=== PATIENT | female | born 1945 | race Caucasian/White ===

== ENCOUNTER → 2016-11-20 | Outpatient (CLI) | payer MEDICARE ==
--- NOTE | 2016-11-20 10:16 | CT ---
EXAMINATION TYPE: CT abdomen pelvis wo con DATE OF EXAM: 11/20/2016 9:02 AM COMPARISON: NONE INDICATION: Pt c/o pain under breasts DLP: 940.1 mGycm, Automated exposure control for dose reduction was used. CONTRAST: None Study performed with Oral Contrast TECHNIQUE: Axial images were obtained from above the diaphragm to the pubic rami in the axial plane a t 5 mm thick sections. Reconstructed images are reviewed on the computer in the coronal plane. FINDINGS: Limited CT sections are obtained the lung bases. The lung bases are clear. CT ABDOMEN: Liver: There is a 1.0 cm hypodensity measuring 6 Hounsfield units in the right lateral lobe liver com patible with a small cyst. An additional hypodensity too small to classify measures 0.8 cm at the inf erior right lobe liver. Spleen: Normal Pancreas: Normal Adrenal glands: The adrenal glands are normal. Gallbladder: Normal Kidneys: No masses are evident. No hydronephrosis is present. No cysts are present. Delayed images were obtained through the kidneys, which remain unremarkable. Aorta: Vascular calcification is within the aorta. Inferior vena cava: Normal. CT PELVIS: Loops of bowel within the abdomen and pelvis are normal. There are loops of bowel which are incom pletely distended or lack oral contrast limiting their evaluation. There are few scattered diverticul i within the sigmoid colon. Appendix: Not identified Urinary bladder: Normal. Genitourinary structures: Uterus is not identified. Adnexal regions are clear. Osseous structures: No suspicious lytic or sclerotic lesions. Sacroiliac joint and facet degenerative changes are present. IMPRESSIONS: 1. Sigmoid diverticulosis without acute diverticulitis. 2. Hepatic cysts.
== END | disposition home or self-care (01) ==
LOC: RADCTMAIN 08:28
PROVIDERS: ATTEND Family Medicine
DX: K57.30 Diverticulosis of large intestine without perforation or abscess without bleeding (principal); K76.89 Other specified diseases of liver; R07.9 Chest pain, unspecified
CPT/HCPCS: 74176

== ENCOUNTER 2018-01-14 09:11 | Day surgery (SDC) | payer MEDICARE ==
[2018-01-12 09:48] VITALS: BMI 34.7
[~2018-01-14 09:11] MED LIST: LACTATED RINGERS 1,000 ML IV SCH; LIDOCAINE 1% 20 ML VIAL (10MG/ML) FOR IV START INTRADERMA PRN
[2018-01-14 09:25] VITALS: TEMP 98.8
[2018-01-14] MEDS ORDERED: LIDOCAINE 1% 20 ML VIAL (10MG/ML) FOR IV START INTRADERMA ONE (09:33)
[2018-01-14] MEDS ORDERED: PROPOFOL 10 MG/ML 20 ML VIAL IV ONE (09:50)
--- NOTE | 2018-01-14 09:52 | P.GSHP ---
History of Present Illness H&P Date: 01/14/18 Chief Complaint: Screening colonoscopy Is a 72-year-old female referred from Dr. Gomez. Patient presents today for screening colonoscopy. She denies a significant complaints. Past Medical History Past Medical History: Osteoarthritis (OA) Additional Past Medical History / Comment(s): POSTIVE COLOGARD TEST History of Any Multi-Drug Resistant Organisms: None Reported Past Surgical History: Adenoidectomy, Appendectomy, Hysterectomy, Tonsillectomy Additional Past Surgical History / Comment(s): COLONOSCOPY Past Anesthesia/Blood Transfusion Reactions: No Reported Reaction Smoking Status: Current every day smoker - Past Family History Mother Family Medical History: Cancer Medications and Allergies Home Medications Medication Instructions Recorded Confirmed Type No Known Home Medications [No 01/12/18 01/14/18 History Known Home Medications] Allergies Allergy/AdvReac Type Severity Reaction Status Date / Time No Known Allergies Allergy Verified 01/14/18 09:27 Surgical - Exam Vital Signs Temp Pulse Resp BP Pulse Ox 98.8 F 91 16 127/84 95 01/14/18 09:24 01/14/18 09:24 01/14/18 09:24 01/14/18 09:24 01/14/18 09:24 - General well developed, no distress - Eyes PERRL - ENT normal pinna - Neck no masses - Respiratory normal expansion - Cardiovascular Rhythm: regular - Abdomen Abdomen: soft, non tender Assessment and Plan Assessment: We'll perform screening colonoscopy.
[2018-01-14 10:40] VITALS: BP 125/63; PULSE 71; RESP 18
--- NOTE | 2018-01-14 23:27 | PCN ---
PROCEDURE NOTE DATE OF PROCEDURE: January 14, 2018. PROCEDURE PERFORMED: EGD. PREOP DIAGNOSIS: Screening colonoscopy. POSTOP DIAGNOSES: 1. Right colon polyp. 2. Diverticulosis. SURGEON: Dr. Hodges. LMSW: None. ANESTHESIA: MAC. DESCRIPTION OF PROCEDURE: Patient placed on the endoscopy table in the left lateral position. She received IV sedation. A digital rectal exam was performed, which revealed a few internal hemorrhoids. The flexible colonoscope was then placed through the anus, passed throughout the colon. The scope could not be placed into the cecum secondary to tortuous of the bowel. At this point, scope was withdrawn. In the right colon, small sessile polyp was found, was removed using forceps. The remainder of the ascending colon and transverse colon appeared normal. In the descending and sigmoid colon, there was mild diverticular changes. The scope was then brought back to the rectum and this appeared normal. Scope was withdrawn from the patient. SUMMARY OF FINDINGS: 1. Diverticulosis. 2. Right colon polyp. 3. Incomplete colonoscopy. The patient was given results of colonoscopy. The last few inches of the colon were not seen. I recommended a barium enema if the patient has any issues with rectal bleeding or change in bowel habits. The patient will follow up as needed. MMODL / IJN: [id number] /
== END 2018-01-14 11:03 | disposition home or self-care (01) ==
LOC: ORWHC2ENDO 09:11
PROVIDERS: ATTEND Surgery
DX: Z12.11 Encounter for screening for malignant neoplasm of colon (principal); D12.2 Benign neoplasm of ascending colon; K56.2 Volvulus; M19.90 Unspecified osteoarthritis, unspecified site; K57.30 Diverticulosis of large intestine without perforation or abscess without bleeding; K64.9 Unspecified hemorrhoids; F17.210 Nicotine dependence, cigarettes, uncomplicated; Z90.710 Acquired absence of both cervix and uterus
CPT/HCPCS: 88305; 45380; J2704

== ENCOUNTER → 2018-01-20 | Outpatient (CLI) | payer MEDICARE ==
--- NOTE | 2018-01-20 17:17 | BD ---
EXAMINATION TYPE: MG DEXA axial skeleton. DATE OF EXAM: 01/20/2018 COMPARISON: 02/14/2015 CLINICAL HISTORY: 72-year-old female osteoarthritis, postmenopausal screening : Height: 60.7 IN Weight: 197 LBS FRAX RISK QUESTIONS: Alcohol (3 or more units per day): NO Family History (Parent hip fracture): NO Glucocorticoids (More than 3mos): NO (Ex: prednisone, prednisolone, methylprednisolone, dexamethasone, and hydrocortisone). History of Fracture in Adulthood: NO Secondary Osteoporosis: 1. Type 1 Diabetes: NO 2. Hyperthyroidism: NO 3. Menopause before 45: AGE 41 4. Malnutrition: NO 5. Chronic liver disease: NO Rheumatoid Arthritis: NO Current Tobacco Use: YES RISK FACTORS HISTORY OF: Family History of Osteoporosis: YES MOTHER/ Active: YES Diet low in dairy products/other sources of calcium: YES Postmenopausal woman: AGE 41 MEDICATIONS: Additional Medications: NONE EXAM MEASUREMENTS: Bone mineral densitometry was performed using the [employer] [facility]. Bone mineral density as measured about the Lumbar spine is: ----- L1-L4(G/cm2): 1.265 T Score Values are as follows: ----- L2: 1.9 ----- L3: 1.2 ----- L4: 0.3 ----- L1-L4: 0.7 Bone mineral density has: Increased 1.4% since study of: 02/14/2015 Bone mineral density about the R hip (g/cm2): 1.048 Bone mineral density about the L hip (g/cm2): 1.023 T Score values are as follows: -----R Neck: 0.1 -----L Neck: -0.1 -----R Total: 2.0 -----L Total: 1.7 Bone mineral density has: Increased 0.2% since study of: 02/14/2015 IMPRESSION: Normal (Values between +1 and -1 indicate normal bone mass). Consider repeating this study in 5 year s or sooner if there is some new clinical indication. NOTE: T-SCORE=SD OF THE YOUNG ADULT MEAN.
--- NOTE | 2018-01-25 10:59 | MM ---
Reason for exam: screening (asymptomatic). Last mammogram was performed 1 year and 10 months ago. History: Patient is postmenopausal and history of other cancer. Benign stereotactic core biopsy of the left breast, September 25, 2000. Core biopsy of the left breast. Excisional biopsy of the left breast. Excisional biopsy of the right breast. Physical Findings: A clinical breast exam by your physician is recommended on an annual basis and results should be correlated with mammographic findings. MG 3D Screening Mammo W/Cad Bilateral CC and MLO view(s) were taken. Prior study comparison: April 01, 2016, bilateral MG 3d screening mammo w/cad. February 14, 2015, bilateral MG screening mammo w CAD. The breast tissue is heterogeneously dense. This may lower the sensitivity of mammography. Finding: There are typically benign vascular calcifications in both breasts. Post biopsy changes bilaterally. Left biopsy marker noted. No significant changes in finding since April 01, 2016 and February 14, 2015. ASSESSMENT: Benign, BI-RAD 2 RECOMMENDATION: Routine screening mammogram of both breasts in 1 year.
== END | disposition home or self-care (01) ==
LOC: RADMAMWWP 15:10
PROVIDERS: ATTEND Family Medicine
DX: Z12.31 Encounter for screening mammogram for malignant neoplasm of breast (principal); M19.90 Unspecified osteoarthritis, unspecified site
CPT/HCPCS: 77063; 77067; 77080

== ENCOUNTER → 2019-02-01 | Outpatient (CLI) | payer MEDICARE ==
--- NOTE | 2019-02-01 12:18 | XR ---
EXAMINATION TYPE: XR chest 2V DATE OF EXAM: 02/01/2019 COMPARISON: 03/31/2016 HISTORY: Physical examination. Asymptomatic patient. TECHNIQUE: Frontal and lateral views of the chest are obtained. FINDINGS: There is no focal air space opacity, pleural effusion, or pneumothorax seen. The cardiac silhouette size is within normal limits. The osseous structures are intact. IMPRESSION: No acute cardiopulmonary process.
--- NOTE | 2019-02-02 13:29 | MM ---
Reason for exam: screening (asymptomatic). Last mammogram was performed 1 year ago. History: Patient is postmenopausal and history of other cancer. Benign stereotactic core biopsy of the left breast, September 25, 2000. Core biopsy of the left breast. Excisional biopsy of the left breast. Excisional biopsy of the right breast. Physical Findings: A clinical breast exam by your physician is recommended on an annual basis and results should be correlated with mammographic findings. MG 3D Screening Mammo W/Cad Bilateral CC and MLO view(s) were taken. Prior study comparison: January 20, 2018, bilateral MG 3d screening mammo w/cad. April 01, 2016, bilateral MG 3d screening mammo w/cad. The breast tissue is heterogeneously dense. This may lower the sensitivity of mammography. Benign appearing bilateral calcifications. No suspicious abnormality. Left biopsy marker is associated with the previously biopsied left breast mass. No significant changes when compared with prior studies. ASSESSMENT: Benign, BI-RAD 2 RECOMMENDATION: Routine screening mammogram of both breasts in 1 year.
== END | disposition home or self-care (01) ==
LOC: RADMAMWWP 11:31
PROVIDERS: ATTEND Family Medicine
DX: Z00.00 Encounter for general adult medical examination without abnormal findings (principal); Z12.31 Encounter for screening mammogram for malignant neoplasm of breast; F17.210 Nicotine dependence, cigarettes, uncomplicated
CPT/HCPCS: 71046; 77063; 77067

== ENCOUNTER → 2020-10-12 | Outpatient (CLI) | payer MEDICARE ==
[2020-10-12 12:29] LABS: Basophils % (A) 0 %; Eosinophils # (A) 0.1 k/uL (0-0.7); Eosinophils % (A) 1 %; HCT 47.1 % (34.0-46.0); HGB 15.7 gm/dL (11.4-16.0); Lymphocytes # (A) 1.3 k/uL (1.0-4.8); Lymphocytes % (A) 25 %; MCH 31.4 pg (25.0-35.0); MCHC 33.2 g/dL (31.0-37.0); MCV 94.4 fL (80.0-100.0); Mean Platelet Volume 7.3; Monocytes # (A) 0.4 k/uL (0-1.0); Monocytes % (A) 7 %; Neutrophils # (A) 3.4 k/uL (1.3-7.7); Neutrophils % (A) 64 %; Platelet Count 184 k/uL (150-450); RBC 4.99 m/uL (3.80-5.40); RDW 12.6 % (11.5-15.5); WBC 5.3 k/uL (3.8-10.6)
[2020-10-12 15:18] LABS: Erythrocyte Sedimentation Rate 5 mm/hr (0-20)
[2020-10-12 19:33] LABS: Ferritin 141.2 ng/mL (10.0-291.0)
[2020-10-12 20:26] LABS: INR 0.97 (0.90-1.11); Prothrombin Time 10.5 sec (9.9-11.9)
[2020-10-12 22:05] LABS: % Iron Saturation 38.44 (12.00-45.00); ALT 18 U/L (8-44); AST 24 U/L (13-35); Alkaline Phosphatase 64 U/L (41-126); BUN/Creat Ratio 13.75 Ratio (12.00-20.00); C Reactive Protein <0.4 mg/dL (0.0-0.8); Calcium 10.1 mg/dL (8.7-10.3); Carbon Dioxide 28.5 mmol/L (21.6-31.8); Chloride 105 mmol/L (96-109); Glucose 101 mg/dL (70-110); Iron 113 ug/dL (50-170); Non-African American GFR(CKD) 71.6 (60.0-200.0); Potassium 4.9 mmol/L (3.5-5.5); Sodium 140 mmol/L (135-145); Total Bilirubin 0.7 mg/dL (0.2-1.2); Total Iron Binding Capacity 294 ug/dL (228-460); Total Protein 6.2 g/dL (6.2-8.2)
[2020-10-18 10:06] LABS: Calprotectin, Stool <27.1 mcg/g (<50)
== END | disposition home or self-care (01) ==
LOC: LABWHC1 11:26
PROVIDERS: ATTEND Internal Medicine
DX: K52.9 Noninfective gastroenteritis and colitis, unspecified (principal); K92.1 Melena; K92.2 Gastrointestinal hemorrhage, unspecified
CPT/HCPCS: 36415; 80053; 82656; 82728; 83540; 83550; 83993; 84439; 84443; 85025; 85610; 85652; 86140; 87328; 87329

== ENCOUNTER 2020-10-22 09:41 | Day surgery (SDC) | payer MEDICARE ==
[2020-10-16 12:08] VITALS: BMI 29.2
[~2020-10-22 09:41] MED LIST changes: -LIDOCAINE 1% 20 ML VIAL (10MG/ML) FOR IV START INTRADERMA PRN
[2020-10-22 09:55] VITALS: TEMP 98.8
[2020-10-22] MEDS ORDERED: LIDOCAINE 1% (10MG/ML) FOR IV START INTRADERMA ONE (10:09)
[2020-10-22] MEDS ORDERED: PROPOFOL 10 MG/ML 20 ML VIAL IV ONE (10:53)
--- NOTE | 2020-10-22 11:13 | P.PCN ---
Date of Procedure: 10/22/20 Description of Procedure: BRIEF HISTORY: Patient is a 75-year-old female presenting for outpatient EGD for evaluation of melena. Patient reports intermittent episodes of dark-colored stool over the past few months. She denies any history of peptic ulcer disease or NSAID use. Blood work performed that evaluation significant for normal hemoglobin and iron studies. PROCEDURE PERFORMED: Esophagogastroduodenoscopy with biopsy. PREOPERATIVE DIAGNOSIS: Melena. ESTIMATED BLOOD LOSS: Minimal. IV sedation per anesthesia. PROCEDURE: After informed consent was obtained, the patient was brought into the endoscopy unit. IV sedation was administered by Anesthesia under continuous monitoring. Initially the Olympus GIF-190 video endoscope was inserted into the mouth. Esophagus intubated without any difficulty. It was gradually advanced into the stomach and duodenum and carefully examined. The bulb and the second part of the duodenum appeared normal, with biopsies taken. The scope at this time was withdrawn to the stomach, adequately insufflated with air, and upon careful examination, mucosa of the antrum, body, cardia and the fundus appeared normal, except for some mild scattered erythema in the antrum and body suggestive of mild gastritis with biopsies of antrum and body taken. The scope was then withdrawn into the esophagus. The GE junction was located at 37 cm from the incisors, with 7 cm of salmon-colored mucosa noted in the distal esophagus suggestive of Martines's esophagus with biopsies taken. The esophagus otherwise appeared normal. There were no erosions or ulcerations seen and the patient tolerated the procedure well. IMPRESSION: 1. Mild gastritis. 2. 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 3. Biopsies of the duodenum, antrum and body and lower esophagus. RECOMMENDATIONS: The findings of this examination were discussed with the patient . Continue omeprazole therapy. Follow up in GI clinic as previously scheduled. Recommendation is for repeat EGD in 2 years if biopsies are consistent with Martines's esophagus.
[2020-10-22 11:31] VITALS: BP 134/76; PULSE 78; RESP 14
== END 2020-10-22 11:59 ==
LOC: ORWHC2ENDO 09:41
PROVIDERS: ATTEND Internal Medicine
DX: K29.50 Unspecified chronic gastritis without bleeding (principal); K22.70 Barrett's esophagus without dysplasia; G43.909 Migraine, unspecified, not intractable, without status migrainosus; K21.9 Gastro-esophageal reflux disease without esophagitis; Z79.899 Other long term (current) drug therapy; Z90.710 Acquired absence of both cervix and uterus; Z90.49 Acquired absence of other specified parts of digestive tract; Z98.890 Other specified postprocedural states
CPT/HCPCS: 88305; 43239; J2704

== ENCOUNTER → 2024-01-22 | Outpatient (CLI) | payer MEDICARE ==
--- NOTE | 2024-01-22 15:14 | XR ---
EXAMINATION TYPE: XR abdomen 1V DATE OF EXAM: 01/22/2024 2:45 PM CLINICAL INDICATION:Female, 78 years old with history of R10.9 UNSPECIFIED ABDOMINAL PAIN; [facility] COMPARISON: None TECHNIQUE: One radiographic view of the abdomen was obtained. FINDINGS: The bowel gas pattern is nonspecific without dilated loops of small or large bowel. There i s no evidence for organomegaly or pneumoperitoneum. The osseous structures are intact. No abnormal calcifications are present. Fecal material and gas are demonstrated throughout the colon and rectum. Calcification in the pelvis correlates with pelvic phlebolith on prior CT. IMPRESSION: Nonspecific bowel gas pattern without radiographic evidence for acute process.
== END | disposition home or self-care (01) ==
LOC: RADXRMAIN 14:19
PROVIDERS: ATTEND Family Medicine
DX: K31.89 Other diseases of stomach and duodenum (principal); R10.9 Unspecified abdominal pain
CPT/HCPCS: 74018

== ENCOUNTER 2024-03-29 12:37 | Day surgery (SDC) | payer MEDICARE ==
[2024-03-29 13:17] VITALS: TEMP 98.4
[2024-03-29] MEDS: LIDOCAINE 1% (10MG/ML) FOR IV START INTRADERMA PRN (13:17)
[2024-03-29] MEDS: IV FLUID CONTINUATION 1,000 ML IV ONE (13:18)
[2024-03-29] MEDS: LACTATED RINGERS 1,000 ML IV SCH (13:18)
[2024-03-29] MEDS ORDERED: PROPOFOL 10 MG/ML 20 ML VIAL IV ONE (13:33)
[2024-03-29] MEDS ORDERED: LIDOCAINE 2% (PF) 20 MG/ML 5 ML VIAL ONE (13:33)
--- NOTE | 2024-03-29 13:45 | P.GSHP ---
History of Present Illness H&P Date: 03/29/24 Chief Complaint: GERD 78-year-old female here for upper endoscopy. Patient with mild reflux. Patient has history of previous hiatal hernia. Also complaining of a bulge left upper abdomen. This is intermittent in nature. Past Medical History Past Medical History: Osteoarthritis (OA) Additional Past Medical History / Comment(s): POSTIVE COLOGARD TEST, colitis History of Any Multi-Drug Resistant Organisms: None Reported Past Surgical History: Adenoidectomy, Appendectomy, Hernia Repair, Hysterectomy, Tonsillectomy Additional Past Surgical History / Comment(s): COLONOSCOPY, hiatal hernia repair, calvin cataract removal Past Anesthesia/Blood Transfusion Reactions: No Reported Reaction Smoking Status: Current every day smoker - Past Family History Mother Family Medical History: Cancer Medications and Allergies Home Medications Medication Instructions Recorded Confirmed Type Citalopram Hydrobromide 20 mg PO QAM 10/16/20 03/24/24 History [Citalopram HBr] Multivitamins, Thera [Multivitamin 1 tab PO DAILY 10/16/20 03/24/24 History (formulary)] Omeprazole [PriLOSEC] 20 mg PO AC-BRKFST 10/16/20 03/24/24 History LORazepam [Lorazepam] 0.5 mg PO DAILY PRN 03/24/24 03/24/24 History Vit B12 (Unk) 1 tab PO DAILY 03/24/24 03/24/24 History Vit D3 (Unk) 1 tab PO DAILY 03/24/24 03/24/24 History Allergies Allergy/AdvReac Type Severity Reaction Status Date / Time No Known Allergies Allergy Verified 03/29/24 13:08 Surgical - Exam Vital Signs Temp Pulse Resp BP Pulse Ox 98.4 F 87 16 150/76 95 03/29/24 13:15 03/29/24 13:15 03/29/24 13:15 03/29/24 13:15 03/29/24 13:15 Physical exam: General: Well-developed, well-nourished HEENT: Normocephalic, sclerae nonicteric Abdomen: Nontender, nondistended Extremities: No edema Neuro: Alert and oriented Assessment and Plan (1) GERD (gastroesophageal reflux disease) Narrative/Plan: Will proceed with EGD at this time. Current Visit: Yes Status: Acute Code(s): K21.9 - GASTRO-ESOPHAGEAL REFLUX DISEASE WITHOUT ESOPHAGITIS SNOMED Code(s): 211229835
--- NOTE | 2024-03-29 13:46 | P.PCN ---
Date of Procedure: 03/29/24 Procedure(s) Performed: Preoperative Dx: GERD Postoperative Dx: Mild gastritis, small recurrent hiatal hernia, Martines's esophagus Procedure: EGD with Bx Anesthesia: Sedation Endoscopist: Dr. Simental Specimens: Antrum, Martines's Endoscopic Procedure: The patient was on the endoscopy table in the left decubitus position. The Olympus gastroscope was inserted into the oropharynx and passed under direct visualization to the region of the third portion of the duodenum. From that point the scope was slowly withdrawn inspecting all surfaces carefully. There were no neoplastic inflammatory or polypoid lesions throughout the duodenum. The pylorus was widely patent. The stomach was carefully inspected. There was mild gastritis present. A biopsy of the antrum took place to rule out H. pylori. Retroflexion revealed a normal appearing band plication. As the scope was withdrawn a small recurrent hiatal hernia was seen. This measured about 1 to 2 cm in size. Above the GE junction there were linear salmon-colored mucosal changes consistent with Martines's esophagus. These extended a distance of about 2 to 3 cm above the GE junction. Several biopsies were taken of the Martines's esophagus. The remainder the esophagus appeared normal. The patient was then taken to the recovery room in stable condition per anesthesia guidelines. Recommendations: Await biopsy results. Continue antiacid therapy.
[2024-03-29 14:04] VITALS: BP 131/94; PULSE 80; RESP 17
== END 2024-03-29 14:37 | disposition home or self-care (01) ==
LOC: ORWHC2ENDO 12:37
PROVIDERS: ATTEND Surgery
DX: K29.50 Unspecified chronic gastritis without bleeding (principal); K21.00 Gastro-esophageal reflux disease with esophagitis, without bleeding; K44.9 Diaphragmatic hernia without obstruction or gangrene; K22.70 Barrett's esophagus without dysplasia; M19.90 Unspecified osteoarthritis, unspecified site; F17.200 Nicotine dependence, unspecified, uncomplicated; Z90.49 Acquired absence of other specified parts of digestive tract; Z90.710 Acquired absence of both cervix and uterus; Z98.890 Other specified postprocedural states; Z79.899 Other long term (current) drug therapy
CPT/HCPCS: 43239; 88305

== ENCOUNTER 2025-01-31 10:04 | Day surgery (SDC) | payer MEDICARE ==
[2025-01-30 09:10] VITALS: BMI 27.3
[2025-01-31] MEDS ORDERED: LACTATED RINGERS 1,000 ML IV SCH (10:36)
[2025-01-31 10:42] VITALS: RESP 16; TEMP 97.8
[2025-01-31] MEDS: IV FLUID CONTINUATION 1,000 ML IV ONE (10:47)
[2025-01-31] MEDS ORDERED: PROPOFOL 10 MG/ML 20 ML VIAL IV ONE (11:14)
[2025-01-31] MEDS ORDERED: LIDOCAINE 2% (PF) 20 MG/ML 5 ML VIAL ONE (11:14)
[2025-01-31 11:45] VITALS: BP 142/75; PULSE 65
--- NOTE | 2025-01-31 12:47 | PCN ---
PROCEDURE NOTE REQUESTING PHYSICIAN: Dr. Jay Gomez. BRIEF HISTORY: The patient is an 79-year-old pleasant white female scheduled for an active upper endoscopy as a part of surveillance of GERD and Martines's esophagus. She has longstanding history of GERD and is on omeprazole 20 mg daily. Last EGD was in December 2021 and was noted to have long segment Martines's esophagus. PROCEDURES PERFORMED: Esophagogastroduodenoscopy with biopsy. PREOPERATIVE DIAGNOSES: Gastroesophageal reflux disease and surveillance of Martines's esophagus. ANESTHESIA: IV sedation per Anesthesia. DESCRIPTION OF PROCEDURE: After informed consent was obtained from the patient, she was brought into the endoscopy unit. IV conscious sedation was administered by Anesthesia and continuous monitoring. Initially, the Olympus GIF-180 video endoscope was inserted into the mouth, esophagus, and intubated without any difficulty and was gradually advanced into the stomach and duodenum. I carefully examined bulb and the second part of the duodenum appeared normal. The scope at this time was withdrawn to the stomach, adequately insufflated within and upon careful examination, mucosa of the antrum, body, cardia and fundus appeared normal. Scope was then withdrawn to the esophagus. There was a small hiatal hernia noted. The GE junction was located at 35 cm from the incisors. There was a long segment of Martines's esophagus extending from 32 to 35 cm from the incisors and multiple biopsies were done from the segment of Martines's esophagus. Rest of the esophagus appeared normal. The patient tolerated the procedure well. IMPRESSION: 1. 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 2. Moderate-sized hiatal hernia. RECOMMENDATIONS: Findings of this examination were discussed with the patient as well as her family. She was advised to follow up with the biopsy results. If the biopsy confirms the presence of Martines's esophagus, she can have a repeat upper endoscopy in 3 years. MMODL / IJN: [id number] /
== END 2025-01-31 12:00 | disposition home or self-care (01) ==
LOC: ORWHC2ENDO 10:04
PROVIDERS: ATTEND Internal Medicine Gastroenterology
DX: K22.70 Barrett's esophagus without dysplasia (principal); K44.9 Diaphragmatic hernia without obstruction or gangrene; K21.9 Gastro-esophageal reflux disease without esophagitis
CPT/HCPCS: 43239; J2704; J2003; 88305